=== PATIENT | male | born 1985 | race Caucasian/White ===

== ENCOUNTER 2019-02-02 18:05 | Emergency (ER) | payer OTHER ==
[~2019-02-02] VITALS: Ht 175.3 cm; Wt 90.5 kg
[2019-02-02] MEDS ORDERED: IBUP-1506 PO (18:27)
[2019-02-02] MEDS ORDERED: CYCL10 PO (18:27)
[2019-02-02] MEDS ORDERED: KETOROLAC TROMETHAMINE 60 MG/2 ML VIAL IM ONE (19:15)
[2019-02-02 21:27] VITALS: BP 112/66
== END 2019-02-02 21:54 | disposition home or self-care (01) ==
LOC: EMS 18:09 → EDSEX 18:09 → EMS 21:54
DX: S43.422A Sprain of left rotator cuff capsule, initial encounter (principal); F12.90 Cannabis use, unspecified, uncomplicated; X58.XXXA Exposure to other specified factors, initial encounter; Y93.89 Activity, other specified; Y92.89 Other specified places as the place of occurrence of the external cause; Y99.8 Other external cause status
CPT/HCPCS: 73030; 96372; 99283; J1885